=== PATIENT | male | born 1965 | race Caucasian/White ===

== ENCOUNTER 2020-09-19 11:01 | Inpatient (IN) | payer OTHER ==
[2020-09-19 12:19] VITALS: BMI 28.8
[2020-09-19] MEDS ORDERED: ACETAMINOPHEN 325 MG TABLET (FP) PO PRN ×2 (13:05)
[2020-09-19] MEDS ORDERED: BISMUTH SUBSALICYLATE 524 MG/30 ML PO PRN (13:05)
[2020-09-19] MEDS ORDERED: IBUPROFEN 400 MG TABLET (FP) PO PRN (13:05)
[2020-09-19] MEDS ORDERED: ONDANSETRON *ODT* 4 MG TABLET SL PRN (13:05)
[2020-09-19] MEDS ORDERED: MAGNESIUM CITRATE 300 ML BOTTLE PO PRN (13:05)
[2020-09-19] MEDS ORDERED: MENTHOL/PHENOL 1 EACH UD MM PRN (13:05)
[2020-09-19] MEDS ORDERED: MAGNESIUM HYDROX 2400MG/30ML ORAL SUSPENSION 30 ML CUP PO PRN (13:05)
[2020-09-19] MEDS ORDERED: MAG HYDROX/AL HYDROX/SIMETH 30 ML UNIT-DOSE CUP PO PRN (13:05)
[2020-09-19] MEDS: chlordiazePOXIDE HCL 25 MG CAPSULE PO PRN (13:54)
[2020-09-19] MEDS: hydrOXYzine PAMOATE 25 MG CAPSULE (FP) PO SCH ×3 (13:54→22:11)
[2020-09-19] MEDS: NICOTINE POLACRILEX 2 MG GUM BUC PRN (14:16)
[2020-09-19] MEDS: chlordiazePOXIDE HCL 25 MG CAPSULE PO SCH ×2 (17:09→22:11)
[2020-09-19] MEDS: METHOCARBAMOL 500 MG TABLET PO PRN (17:09)
[2020-09-19 17:49] LABS: HEMATOCRIT 44.5 % (35.4-49); HEMOGLOBIN 14.2 GM/dL (11.7-16.9); MCH 27.1 pg (25.7-33.7); MCHC 31.8 g/dl (32.0-35.9); MEAN CELL VOLUME 85.2 fl (80-96); MEAN PLT VOLUME 8.7 fl (7.5-11.1); PLATELET COUNT 277 K/MM3 (134-434); RBC 5.22 M/mm3 (4.00-5.60); RDW 13.6 % (11.9-15.9)
[2020-09-19 17:54] LABS: CALCIUM 9.5 mg/dL (8.5-10.1)
[2020-09-19 17:55] LABS: ALBUMIN 4.1 g/dl (3.4-5.0); BLOOD UREA NITROGEN 19.6 mg/dL (7-18)
[2020-09-19 17:58] LABS: CREATININE 1.1 mg/dL (0.55-1.3)
[2020-09-19 17:59] LABS: BILIRUBIN,TOTAL 0.8 mg/dL (0.2-1); TOT PROT 7.8 g/dl (6.4-8.2)
[2020-09-19] MEDS ORDERED: MIRTAZAPINE 15 MG TABLET (FP) PO SCH (22:00)
[2020-09-19] MEDS ORDERED: QUEtiapine FUMARATE 200 MG TABLET PO SCH (22:00)
[2020-09-19] MEDS: THIAMINE HCL 100 MG TABLET (FP) PO SCH (22:10)
[2020-09-19] MEDS: MELATONIN 5 MG TABLETS PO SCH (22:11)
[2020-09-20] MEDS: NICOTINE POLACRILEX 2 MG GUM BUC PRN ×3 (01:35→12:14)
[2020-09-20] MEDS: chlordiazePOXIDE HCL 25 MG CAPSULE PO PRN (01:48)
[2020-09-20] MEDS: hydrOXYzine PAMOATE 25 MG CAPSULE (FP) PO SCH (05:41)
[2020-09-20] MEDS: chlordiazePOXIDE HCL 25 MG CAPSULE PO SCH ×4 (05:41→22:06)
[2020-09-20] MEDS: methaDONE HCL 40 MG DISPERSABLE TABLET PO SCH (05:41)
[2020-09-20] MEDS: hydrOXYzine PAMOATE 50 MG CAPSULE (FP) PO SCH ×4 (10:11→22:07)
[2020-09-20] MEDS: NICOTINE 14 MG/24 HOURS TOPICAL PATCH TD SCH (10:13)
[2020-09-20] MEDS: PRENATAL VITAMINS W/ FOLIC ACID TABLET (FP) PO SCH (10:13)
[2020-09-20] MEDS: CLOTRIMAZOLE 1% CREAM TP SCH ×2 (13:16→22:06)
[2020-09-20] MEDS ORDERED: MIRTAZAPINE 15 MG TABLET (FP) ONE (21:02)
[2020-09-20] MEDS: MELATONIN 5 MG TABLETS PO SCH (22:06)
[2020-09-20] MEDS: QUEtiapine FUMARATE 400 MG TABLET PO SCH (22:07)
[2020-09-20] MEDS: MIRTAZAPINE 30 MG TABLET PO SCH (22:07)
[2020-09-20] MEDS: THIAMINE HCL 100 MG TABLET (FP) PO SCH (22:07)
[2020-09-21] MEDS: hydrOXYzine PAMOATE 50 MG CAPSULE (FP) PO SCH ×6 (02:34→22:07)
[2020-09-21] MEDS: chlordiazePOXIDE HCL 25 MG CAPSULE PO SCH ×2 (05:31→10:13)
[2020-09-21] MEDS: methaDONE HCL 40 MG DISPERSABLE TABLET PO SCH (05:31)
[2020-09-21] MEDS: NICOTINE POLACRILEX 2 MG GUM BUC PRN ×2 (08:37→21:06)
[2020-09-21] MEDS ORDERED: QUEtiapine FUMARATE 200 MG TABLET PO SCH (10:00)
[2020-09-21] MEDS: PRENATAL VITAMINS W/ FOLIC ACID TABLET (FP) PO SCH (10:12)
[2020-09-21] MEDS: CLOTRIMAZOLE 1% CREAM TP SCH ×2 (10:13→22:07)
[2020-09-21] MEDS: NICOTINE 14 MG/24 HOURS TOPICAL PATCH TD SCH (10:14)
[2020-09-21] MEDS ORDERED: SERTRALINE HCL 50 MG TABLET (FP) PO SCH (11:45)
[2020-09-21] MEDS: METHOCARBAMOL 500 MG TABLET PO PRN (12:40)
[2020-09-21] MEDS: chlordiazePOXIDE HCL 25 MG CAPSULE PO PRN (13:58)
[2020-09-21] MEDS: diazePAM 5 MG TABLET PO PRN (17:24)
[2020-09-21] MEDS ORDERED: diazePAM 5 MG TABLET PO SCH (22:00)
[2020-09-21] MEDS: QUEtiapine FUMARATE 400 MG TABLET PO SCH (22:07)
[2020-09-21] MEDS: MELATONIN 5 MG TABLETS PO SCH (22:07)
[2020-09-21] MEDS: THIAMINE HCL 100 MG TABLET (FP) PO SCH (22:07)
[2020-09-21] MEDS: MIRTAZAPINE 30 MG TABLET PO SCH (22:07)
[2020-09-22] MEDS ORDERED: chlordiazePOXIDE HCL 10 MG CAPSULE PO PRN
[2020-09-22] MEDS: hydrOXYzine PAMOATE 50 MG CAPSULE (FP) PO SCH ×6 (04:04→22:03)
[2020-09-22] MEDS ORDERED: chlordiazePOXIDE HCL 10 MG CAPSULE PO SCH (05:00)
[2020-09-22] MEDS: methaDONE HCL 40 MG DISPERSABLE TABLET PO SCH (05:38)
[2020-09-22] MEDS: diazePAM 5 MG TABLET PO SCH ×2 (05:38→10:07)
[2020-09-22] MEDS ORDERED: QUEtiapine FUMARATE 100 MG TABLET (FP) ONE (08:53)
[2020-09-22] MEDS: QUEtiapine FUMARATE 300 MG TABLET PO SCH (10:06)
[2020-09-22] MEDS: SERTRALINE HCL 50 MG TABLET (FP) PO SCH (10:07)
[2020-09-22] MEDS: PRENATAL VITAMINS W/ FOLIC ACID TABLET (FP) PO SCH (10:08)
[2020-09-22] MEDS: CLOTRIMAZOLE 1% CREAM TP SCH ×2 (10:09→22:01)
[2020-09-22] MEDS: NICOTINE POLACRILEX 2 MG GUM BUC PRN ×2 (10:10→14:23)
[2020-09-22] MEDS: NICOTINE 14 MG/24 HOURS TOPICAL PATCH TD SCH (10:10)
[2020-09-22] MEDS: METHOCARBAMOL 500 MG TABLET PO PRN ×2 (12:16→22:00)
[2020-09-22] MEDS: diazePAM 5 MG TABLET PO PRN ×2 (12:16→18:25)
[2020-09-22] MEDS ORDERED: MIRTAZAPINE 15 MG TABLET (FP) ONE (20:23)
[2020-09-22] MEDS: MIRTAZAPINE 30 MG TABLET PO SCH (22:00)
[2020-09-22] MEDS: MELATONIN 5 MG TABLETS PO SCH (22:00)
[2020-09-22] MEDS: THIAMINE HCL 100 MG TABLET (FP) PO SCH (22:00)
[2020-09-22] MEDS: QUEtiapine FUMARATE 400 MG TABLET PO SCH (22:03)
[2020-09-23] MEDS: hydrOXYzine PAMOATE 50 MG CAPSULE (FP) PO SCH ×3 (03:03→09:45)
[2020-09-23] MEDS ORDERED: chlordiazePOXIDE HCL 10 MG CAPSULE PO SCH (05:00)
[2020-09-23] MEDS ORDERED: diazePAM 5 MG TABLET PO ONE (05:00)
[2020-09-23] MEDS ORDERED: chlordiazePOXIDE HCL 10 MG CAPSULE PO ONE (05:00)
[2020-09-23] MEDS: methaDONE HCL 40 MG DISPERSABLE TABLET PO SCH (06:03)
[2020-09-23 08:49] VITALS: BP 124/69; PULSE 84; TEMP 98.2
[2020-09-23] MEDS: CLOTRIMAZOLE 1% CREAM TP SCH (09:45)
[2020-09-23] MEDS: PRENATAL VITAMINS W/ FOLIC ACID TABLET (FP) PO SCH (09:45)
[2020-09-23] MEDS: NICOTINE 14 MG/24 HOURS TOPICAL PATCH TD SCH (09:45)
[2020-09-23] MEDS: QUEtiapine FUMARATE 300 MG TABLET PO SCH (09:45)
[2020-09-23] MEDS: SERTRALINE HCL 50 MG TABLET (FP) PO SCH (09:46)
[2020-09-24] MEDS ORDERED: chlordiazePOXIDE HCL 10 MG CAPSULE PO ONE (05:00)
== END 2020-09-23 09:39 | disposition home or self-care (01) | DRG 897 ==
LOC: YASAS 11:01 → Y3N 13:10
PROVIDERS: ADMIT Allergy & Immunology; ATTEND Allergy & Immunology
PROC: HZ2ZZZZ Detoxification Services for Substance Abuse Treatment (ICD-10-PCS; principal; 2020-09-19)
DX: F10.230 Alcohol dependence with withdrawal, uncomplicated (principal); F11.20 Opioid dependence, uncomplicated; F14.20 Cocaine dependence, uncomplicated; F13.230 Sedative, hypnotic or anxiolytic dependence with withdrawal, uncomplicated; F12.20 Cannabis dependence, uncomplicated; F17.210 Nicotine dependence, cigarettes, uncomplicated; F31.9 Bipolar disorder, unspecified; F19.24 Other psychoactive substance dependence with psychoactive substance-induced mood disorder; M17.12 Unilateral primary osteoarthritis, left knee; M54.5 Low back pain; G89.29 Other chronic pain; G47.00 Insomnia, unspecified; Z86.19 Personal history of other infectious and parasitic diseases
CPT/HCPCS: 36415; 80053; 85027; 86780; C9803; U0003

== ENCOUNTER 2021-10-30 13:24 | Inpatient (IN) | payer OTHER ==
[2021-10-30] MEDS ORDERED: MAGNESIUM HYDROX 2400MG/30ML ORAL SUSPENSION 30 ML CUP PO PRN (15:30)
[2021-10-30] MEDS ORDERED: ACETAMINOPHEN 325 MG TABLET (FP) PO PRN ×2 (15:30)
[2021-10-30] MEDS ORDERED: IBUPROFEN 400 MG TABLET (FP) PO PRN (15:30)
[2021-10-30] MEDS ORDERED: MAG HYDROX/AL HYDROX/SIMETH 30 ML UNIT-DOSE CUP PO PRN (15:30)
[2021-10-30] MEDS ORDERED: MAGNESIUM CITRATE 300 ML BOTTLE PO PRN (15:30)
[2021-10-30] MEDS ORDERED: MENTHOL/PHENOL 1 EACH UD MM PRN (15:30)
[2021-10-30] MEDS ORDERED: BISMUTH SUBSALICYLATE 524 MG/30 ML PO PRN (15:30)
[2021-10-30] MEDS ORDERED: ONDANSETRON *ODT* 4 MG TABLET SL PRN (15:30)
[2021-10-30 16:35] VITALS: BMI 23.4
[2021-10-30] MEDS: hydrOXYzine PAMOATE 25 MG CAPSULE (FP) PO SCH ×2 (20:46→22:47)
[2021-10-30] MEDS ORDERED: MELATONIN 5 MG TABLETS PO SCH (22:00)
[2021-10-30] MEDS: diazePAM 5 MG TABLET PO SCH (22:45)
[2021-10-30] MEDS: METHOCARBAMOL 500 MG TABLET PO PRN (22:47)
[2021-10-30] MEDS: THIAMINE HCL 100 MG TABLET (FP) PO SCH (22:47)
[2021-10-31] MEDS: METHOCARBAMOL 500 MG TABLET PO PRN ×3 (05:56→22:25)
[2021-10-31] MEDS: diazePAM 5 MG TABLET PO SCH ×4 (05:57→22:24)
[2021-10-31] MEDS: hydrOXYzine PAMOATE 25 MG CAPSULE (FP) PO SCH ×5 (05:57→22:24)
[2021-10-31] MEDS: NICOTINE 10 MG CARTRIDGE (INHALER) IH PRN (08:41)
[2021-10-31] MEDS ORDERED: methaDONE HCL 10 MG TABLET PO ONE (10:00)
[2021-10-31] MEDS ORDERED: PATIENT'S OWN MEDICATION (NON-FORMULARY) (Omeprazole 20 MG Capsule.Dr) PO SCH (10:00)
[2021-10-31] MEDS: PRENATAL VITAMINS W/ FOLIC ACID TABLET (FP) PO SCH (10:27)
[2021-10-31 10:44] LABS: HEMATOCRIT 38.7 % (35.4-49); HEMOGLOBIN 12.7 GM/dL (11.7-16.9); MCH 30.1 pg (25.7-33.7); MCHC 32.7 g/dl (32.0-35.9); MEAN CELL VOLUME 91.9 fl (80-96); MEAN PLT VOLUME 9.1 fl (7.5-11.1); PLATELET COUNT 211 10^3/uL (134-434); RBC 4.21 M/mm3 (4.00-5.60); RDW 13.9 % (11.9-15.9); WHITE BLOOD COUNT 4.3 K/mm3 (4.0-10.0)
[2021-10-31 11:02] LABS: TOT PROT 6.2 g/dl (6.4-8.2)
[2021-10-31 11:05] LABS: ALBUMIN 3.2 g/dl (3.4-5.0); BILIRUBIN,TOTAL 0.7 mg/dL (0.2-1)
[2021-10-31 11:09] LABS: BLOOD UREA NITROGEN 21.8 mg/dL (7-18); CALCIUM 9.2 mg/dL (8.5-10.1)
[2021-10-31] MEDS ORDERED: PATIENT'S OWN MEDICATION (NON-FORMULARY) (Esomeprazole Magnesium [Nexium 24hr] 20 MG Table PO SCH (12:45)
[2021-10-31] MEDS: diazePAM 5 MG TABLET PO PRN (14:46)
[2021-10-31] MEDS ORDERED: FAMOTIDINE 20 MG TABLET PO SCH (22:00)
[2021-10-31] MEDS: FAMOTIDINE 20 MG TABLET PO SCH (22:24)
[2021-10-31] MEDS: THIAMINE HCL 100 MG TABLET (FP) PO SCH (22:24)
[2021-11-01] MEDS: diazePAM 5 MG TABLET PO SCH ×3 (06:03→22:02)
[2021-11-01] MEDS: hydrOXYzine PAMOATE 25 MG CAPSULE (FP) PO SCH ×5 (06:03→22:02)
[2021-11-01] MEDS: methaDONE HCL 10 MG TABLET PO SCH (06:03)
[2021-11-01] MEDS: FAMOTIDINE 20 MG TABLET PO SCH ×2 (10:07→22:02)
[2021-11-01] MEDS: PRENATAL VITAMINS W/ FOLIC ACID TABLET (FP) PO SCH (10:07)
[2021-11-01] MEDS: METHOCARBAMOL 500 MG TABLET PO PRN ×2 (10:09→22:04)
[2021-11-01] MEDS: diazePAM 5 MG TABLET PO PRN ×2 (10:12→17:07)
[2021-11-01] MEDS: NICOTINE 10 MG CARTRIDGE (INHALER) IH PRN (10:24)
[2021-11-01] MEDS: THIAMINE HCL 100 MG TABLET (FP) PO SCH (22:02)
[2021-11-01] MEDS: MINERAL OIL/PETROLAT/WATER TOPICAL CREAM 113 GM JAR TP SCH (22:10)
[2021-11-02] MEDS: diazePAM 5 MG TABLET PO PRN ×2 (01:44→10:05)
[2021-11-02] MEDS: NICOTINE 10 MG CARTRIDGE (INHALER) IH PRN ×2 (06:14→13:40)
[2021-11-02] MEDS: methaDONE HCL 10 MG TABLET PO SCH (06:16)
[2021-11-02] MEDS: hydrOXYzine PAMOATE 25 MG CAPSULE (FP) PO SCH ×5 (06:16→22:11)
[2021-11-02] MEDS: diazePAM 5 MG TABLET PO SCH ×2 (06:17→17:43)
[2021-11-02] MEDS: MINERAL OIL/PETROLAT/WATER TOPICAL CREAM 113 GM JAR TP SCH ×2 (06:20→19:12)
[2021-11-02] MEDS: PRENATAL VITAMINS W/ FOLIC ACID TABLET (FP) PO SCH (10:04)
[2021-11-02] MEDS: METHOCARBAMOL 500 MG TABLET PO PRN ×2 (10:04→17:44)
[2021-11-02] MEDS: FAMOTIDINE 20 MG TABLET PO SCH (17:42)
[2021-11-02] MEDS ORDERED: QUEtiapine FUMARATE 200 MG TABLET PO SCH (22:00)
[2021-11-02] MEDS: THIAMINE HCL 100 MG TABLET (FP) PO SCH (22:11)
[2021-11-02 23:26] VITALS: PULSE 68
[2021-11-03] MEDS ORDERED: diazePAM 5 MG TABLET PO ONE (06:00)
[2021-11-03] MEDS: hydrOXYzine PAMOATE 25 MG CAPSULE (FP) PO SCH (06:21)
[2021-11-03] MEDS: methaDONE HCL 10 MG TABLET PO SCH (06:22)
[2021-11-03] MEDS: FAMOTIDINE 20 MG TABLET PO SCH (06:22)
[2021-11-03] MEDS: MINERAL OIL/PETROLAT/WATER TOPICAL CREAM 113 GM JAR TP SCH (06:26)
[2021-11-03] MEDS: NICOTINE 10 MG CARTRIDGE (INHALER) IH PRN (06:26)
[2021-11-03 07:25] VITALS: BP 125/77; TEMP 98.9
== END 2021-11-03 09:37 | disposition home or self-care (01) | DRG 897 ==
LOC: YASAS 13:24 → Y6N 19:27
PROVIDERS: ADMIT Allergy & Immunology; ATTEND Allergy & Immunology
PROC: HZ2ZZZZ Detoxification Services for Substance Abuse Treatment (ICD-10-PCS; principal; 2021-10-30)
DX: F10.230 Alcohol dependence with withdrawal, uncomplicated (principal); F11.20 Opioid dependence, uncomplicated; F13.20 Sedative, hypnotic or anxiolytic dependence, uncomplicated; F14.20 Cocaine dependence, uncomplicated; F12.20 Cannabis dependence, uncomplicated; F17.210 Nicotine dependence, cigarettes, uncomplicated; F31.9 Bipolar disorder, unspecified; M17.12 Unilateral primary osteoarthritis, left knee; M51.9 Unspecified thoracic, thoracolumbar and lumbosacral intervertebral disc disorder; M06.9 Rheumatoid arthritis, unspecified; M54.50 Low back pain, unspecified; G89.29 Other chronic pain; Z86.19 Personal history of other infectious and parasitic diseases
CPT/HCPCS: 36415; 80053; 85027; 86780; C9803; U0003; U0005